=== PATIENT | female | born 2000 | race Two or more races ===

== ENCOUNTER → 2019-05-27 | Outpatient (CLI) | payer OTHER ==
[2019-05-27 08:56] LABS: Basophils # (auto) 0 uL; Basophils % (auto) 0.5 % (0.0-2.0); Eosinophils # (auto) 0.3 uL; Eosinophils % (auto) 6.6 % (0.0-7.0); Hematocrit 43.1 % (36.0-46.0); Hemoglobin 14.7 g/dL (12.2-16.2); Lymphocytes # (auto) 2.1 uL; Lymphocytes % (auto) 44.7 % (10.0-50.0); Mean Corpuscular Hemoglobin 30.3 pg (28.0-32.0); Mean Corpuscular Hgb Conc. 34.1 g/dL (32.0-36.0); Monocytes # (auto) 0.3 uL; Neutrophils # (auto) 1.9 uL; Neutrophils % (auto) 41.2 % (37.0-80.0); Nucleated Red Blood Cells % 0.1 %; Platelet Count (auto) 292 10^3/uL (140-450); Red Blood Cells 4.84 10^6/uL (4.0-5.20); Red Cell Distribution Width 13.5 % (11.8-14.3); White Blood Cell 4.6 10^3/uL (4.4-10.8)
[2019-05-27 09:26] LABS: BUN/Creatinine Ratio 12.8; Potassium 4.1 mmol/L (3.5-5.1)
[2019-05-27 09:31] LABS: Bilirubin, Total 0.4 mg/dL (0.2-1.0); Free T3 3.84 pg/mL (2.3-4.2); Free T4 (Free Thyroxine) 0.97 ng/dL (0.89-1.76); Total Protein 7.8 g/dL (6.4-8.2)
== END | disposition home or self-care (01) ==
LOC: LAB 08:41
PROVIDERS: ATTEND Internal Medicine
DX: N92.0 Excessive and frequent menstruation with regular cycle (principal); R53.83 Other fatigue; R63.4 Abnormal weight loss; R19.7 Diarrhea, unspecified
CPT/HCPCS: 36415; 80053; 80061; 82270; 82306; 83036; 84439; 84443; 84481; 85025; 87045; 87177; 87427

== ENCOUNTER 2022-12-20 02:27 | Emergency (ER) | payer OTHER ==
[~2022-12-20] VITALS: Ht 172.7 cm; Wt 75.7 kg
[2022-12-20 06:38] VITALS: BP 144/78
== END 2022-12-20 07:47 | disposition home or self-care (01) ==
LOC: ER 02:27
DX: S60.022A Contusion of left index finger without damage to nail, initial encounter (principal); W22.8XXA Striking against or struck by other objects, initial encounter; Y93.89 Activity, other specified; Y92.89 Other specified places as the place of occurrence of the external cause; Y99.0 Civilian activity done for income or pay
CPT/HCPCS: 29130; 73130

== ENCOUNTER 2024-01-07 20:35 | Emergency (ER) | payer MEDICAID, OTHER ==
[~2024-01-07] VITALS: Ht 172.7 cm; Wt 75.2 kg
[2024-01-07 21:33] LABS: Urine Bacteria None Seen /hpf (None Seen)
[2024-01-07] MEDS: SUMAtriptan SUCCINATE 6 MG/0.5 ML VL SC ONE (21:35)
[2024-01-07] MEDS: ONDANSETRON ODT 4 MG TAB PO ONE (21:36)
[2024-01-07 21:46] LABS: Urine Blood Negative /uL (Negative); Urine Clarity Clear (Clear); Urine Color Light-Yellow (Yellow); Urine Mucus FEW (None Seen); Urine Protein, UAD TRACE (Negative); Urine Specific Gravity 1.029 (1.001-1.035); Urine Urobilinogen Normal (Negative); Urine WBC 1 /hpf (0 - 5); Urine pH 6.5 (5.0-9.0)
[2024-01-08 00:26] VITALS: BP 124/73; PULSE 63; RESP 20; TEMP 97.7; O2SAT 100
[2024-01-08] MEDS ORDERED: ZOFR4T PO (01:08)
[2024-01-08] MEDS ORDERED: SUMA100T2 PO (01:08)
== END 2024-01-08 01:19 | disposition home or self-care (01) ==
LOC: ER 20:35
DX: R51.9 Headache, unspecified (principal); F10.10 Alcohol abuse, uncomplicated; R42 Dizziness and giddiness; Z32.02 Encounter for pregnancy test, result negative
CPT/HCPCS: 70450; 81001; 81025; 93005; 96372; 99285; J3030; Q0162